=== PATIENT | female | born 1940 | race Caucasian/White ===

== ENCOUNTER 2024-09-02 09:00 | Inpatient (IN) | payer MEDICARE, OTHER, SELFPAY ==
[2024-08-30] VITALS (10 sets, daily range): BP systolic 105–142; BP diastolic 45–90; BMI 32.8
[2024-08-30 15:20] LABS: % Basophils 0.5 % (0-2); % Eosinophils 0.5 % (0-6); % Immature Granulocytes 0.5 % (0-0.5); % Lymphocytes 6.9 % (20.5-51.1); % Monocytes 5.7 % (1.7-9.3); % Neutrophils 85.9 % (42.2-75.2); Absolute Basophils 0.1 10^3/uL (0-0.2); Absolute Eosinophils 0.1 10^3/uL (0-0.7); Absolute Immature Granulocytes 0.1 10^3/uL (0-0.05); Absolute Lymphocytes 0.9 10^3/uL (1.2-3.4); Absolute Monocytes 0.7 10^3/uL (0.1-0.6); Absolute Neutrophils 11.1 10^3/uL (1.4-6.5); Hematocrit 37.6 % (37.0-47.0); Hemoglobin 11.4 g/dL (12.0-16.0); Mean Corp Hgb Conc. 30.3 g/dL (33.0-37.0); Mean Corpuscular Hgb 25.1 pg (27.0-31.0); Mean Corpuscular Volume 82.8 fL (81.0-99.0); Mean Platelet Volume 9.5 fL (7.4-10.4); Nucleated Red Blood Cells % 0 %; Platelet Count 293 10^3/uL (130-400); Red Blood Cell Count 4.54 10^6/uL (4.20-5.40); White Blood Cell Count 12.9 10^3/uL (4.8-10.8)
[2024-08-30 15:31] LABS: Urine Albumin 3+ (Neg - Trace); Urine Bilirubin 1+ (Negative); Urine Character Very Cloudy (Clear); Urine Color Brown; Urine Glucose Negative (Negative); Urine Ketone Trace (Negative); Urine Leukocyte 1+ (Negative); Urine Nitrite Positive (Negative); Urine Occult Blood 4+ (Negative); Urine Urobilinogen 1+ (Neg - 1+); Urine pH 6.5 (5.0-9.0)
--- NOTE | 2024-08-30 15:31 | ED.GENMED ---
History of Present Illness
General
Chief Complaint: Bowel Problem
Source: patient
Exam Limitations: none
Time Seen by Provider: 08/30/24 14:49
Nursing documentation reviewed up to this point in time: agreed with
History of Present Illness
History of Present Illness:
Patient is an 84-year-old presenting from assisted living for evaluation following episode of blood in toilet bowl. Patient states she went to the bathroom after eating lunch, urinating, and the toilet was filled with bright red blood. Patient
denies any dysuria. Patient states her last bowel movement was yesterday�was normal with no blood or melena. Patient denies any fevers, abdominal pain, back pain, urinary symptoms. Patient is unsure exactly where blood came from.
Patient does report shortness of breath which is chronic for her.
Her son in the room does state that she has had a few episodes of hematuria over the past year that were minor.
Patient is on any blood thinners.
Review of Systems
Review of Systems
Allergies reviewed?: Yes
All Other Systems: ROS reviewed and negative except as documented in HPI and ROS
Phy Exam
Physical Exam
Physical Exam:
Vitals: Patient's vital signs are stable. Afebrile
General: Patient is well appearing, no acute distress
Skin: Warm and dry, no rashes or lesions
Head: Normocephalic, atraumatic
Eyes: Sclera nonicteric. EOMs intact. No nystagmus.
Throat: Protecting airway
Neck: Normal ROM, no cervical spine tenderness, no meningismus
Cardiac: Regular rate and rhythm, no murmurs.
Pulm: Mild increased work of breathing. Scattered expiratory wheeze. Oxygen saturation 95 on room air
Abdomen: Abdomen soft and nontender. No rebound tenderness or guarding. No CVA tenderness
: Bimanual exam without any active bleeding from vaginal vault
Rectal: No stool in vault. No bleeding.
Extremities: No evidence of cyanosis or edema. Great distal pulses
Neuro: AAOx3. CN II-XII intact. No focal neurologic deficits.
Psychiatric: Normal affect.
Course
Orders/Labs/Results
Orders:
Orders
08/30/24 14:41
Electrocardiogram (*1) Urgent
Reason for Study: Other
Other Reason for Exam: BPR
EKG- Treatment ONCE
08/30/24 Dinner
Regular
At Your Request: Full Participation
Does patient need a safe tray?: No
08/30/24 15:11
CMP [Comprehensive Metabolic Panel] Urgent
Complete Blood Count/With Diff Urgent
08/30/24 15:26
Urinalysis Reflex To Culture Urgent
Date Specimen was Collected: 08/30/24
Time Specimen was Collected: 15:24
Urine Microscopic Reflex Cult Urgent
Urine Culture Urgent
MARILY Source: U
Specimen Description:
Date Specimen was Collected: 08/30/24
Time Specimen was Collected: 15:24
08/30/24 16:53
CT Abd/Pel (IV only)-DH only Urgent
Comment:
Reason For Exam: frequent hematuria, UTIs, chills
08/30/24 19:15
Ipratropium/Albuterol Sulfate [Duoneb] 3 ml INH R NOW STA
08/30/24 21:30
Admit/Transfer Patient As Directed
Co-Sign Provider:
Level of Care: Observation services
Assign to:: Medical/Surgical
Physician / Group: Porter Munoz
Diagnosis: UTI/Hematuria
PRN Pain Medication Management As Directed
May give lesser potent ordered pain med per pt: Yes
preference::
Protocol:: Medication orders for pain may be administered in a
manner that supports deferring to patient preference
when the pt is:
- Requesting an ordered lesser potent pain medication.
Least to most potent pain medications are defined
as: acetaminophen < NSAID < tramadol < opioids
(morphine, oxycodone, hydromorphone).
- Requesting a lesser dose of the same medication IF
ORDERED.
- Requesting a less intrusive route of administration
if both routes are prescribed by the provider (PO <
IV).
08/30/24 21:31
Code Status As Directed
Resuscitation Status: Do not resuscitate
Reached after discussion with pt or family/Healthcare POA: Yes
Decision communicated with: Patient
08/30/24 21:32
DNR Bracelet Application ONCE
08/30/24 23:50
Acetaminophen [Tylenol] 650 mg PO Q4HPRN PRN
Docusate Sodium [Colace] 100 mg PO DAILYPRN PRN
Gabapentin [Neurontin] 300 mg PO HS
Tramadol HCl [Ultram] 50 mg PO Q6HPRN PRN
Triamcinolone Cream [Aristocort/Triamcinolone 0.1% Cream] See Dose Instructions TOPICAL BIDPRN PRN
08/30/24 23:50
UROLOGY CONSULT Routine
Consulting Provider: Leonid Whipple
Was physician already notified: Yes
Activity As Directed
Activity Level: Out of Bed-Early Mobility
Vital Signs As Directed
Frequency: Per unit guidelines
DX Deep Vein Thrombosis Video Routine
08/31/24 00:00
CefTRIAXone [Rocephin] 1,000 mg IV Q24H
08/31/24 00:52
Ipratropium/Albuterol Sulfate [Duoneb] 3 ml INH R Q6HPRN PRN
08/31/24 04:15
Basic Metabolic Panel IN AM
Complete Blood Count/No Diff IN AM
08/31/24 08:00
Furosemide [Lasix] 20 mg PO MoWeFr@0800
08/31/24 18:00
Enoxaparin Sodium [Lovenox] 40 mg SC QPM
09/01/24 06:00
Basic Metabolic Panel IN AM
Complete Blood Count/No Diff IN AM
09/02/24 06:00
Basic Metabolic Panel IN AM
Complete Blood Count/No Diff IN AM
Abnormal Lab Results
08/30/24 08/30/24
15:11 15:26
WBC 12.9 H 10^3/uL
(4.8-10.8)
Hgb 11.4 L g/dL
(12.0-16.0)
MCH 25.1 L pg
(27.0-31.0)
MCHC 30.3 L g/dL
(33.0-37.0)
RDW 15.0 H %
(11.5-14.5)
Abs Immat Gran (auto) 0.1 H 10^3/uL
(0-0.05)
Absolute Neuts (auto) 11.1 H 10^3/uL
(1.4-6.5)
Absolute Lymphs (auto) 0.9 L 10^3/uL
(1.2-3.4)
Absolute Monos (auto) 0.7 H 10^3/uL
(0.1-0.6)
Neutrophils % 85.9 H %
(42.2-75.2)
Lymphocytes % 6.9 L %
(20.5-51.1)
Carbon Dioxide 32 H mmol/L
(22-30)
BUN 24 H mg/dl
(7-17)
Glucose 164 H mg/dl
(70-99)
Urine Ketones Trace A
(Negative)
Ur Occult Blood Reflex 4+ A
(Negative)
Urine Nitrite (Reflex) Positive A
(Negative)
Urine Bilirubin 1+ A
(Negative)
Leukocyte Esterase Rfl 1+ A
(Negative)
Urine RBC >100 A /HPF
(0-2)
Urine Albumin (Reflex) 3+ A
(Neg - Trace)
08/30/24 15:11
08/30/24 15:11
Vital Signs
Initial and Last Documented VS:
Initial Vital Signs
Temp Pulse Resp BP Pulse Ox
98.3 F 92 18 140/65 94
08/30/24 14:42 08/30/24 14:42 08/30/24 14:42 08/30/24 14:42 08/30/24 14:42
Last Documented Vital Signs
Temp Pulse Resp BP Pulse Ox
98.3 F 82 20 112/63 99
08/30/24 14:42 08/31/24 06:18 08/31/24 04:13 08/31/24 06:19 08/31/24 08:04
MDM/Problems Addressed
Differential Diagnosis Includes:
Not limited to: Hemorrhagic cystitis, kidney stone, pyelonephritis, malignancy, etc.
MDM/Problems Addressed:
84 year old female presenting with episode of gross hematuria. No fevers or abdominal pain. Normal bowel movements. Patient has had recent UTIs with minor episodes of hematuria over the past 6 months. Vitals stable. Patient is afebrile. Exam as
above. Labs noted. Mild leukocytosis of 12.9. Hgb of 11.4 - no comparison. Patient has had multiple episodes of gross hematuria while in emergency department. UA shows evidence of potential infection. A CT was obtained which shows findings
concerning for bladder malignancy. Did discuss with urology who will follow out-patient. Given persistent gross hematuria and weakness - will admit to hospital for further monitoring. Patient given IV rocephin in emergency department to cover for
possible UTI pending culture data. Patient admitted to hospitalist in stable condition. Case discussed with attending physician.
Chronic conditions affecting care:
N/A
Acute Exacerbation and/or Progression of Chronic Illness:
N/A
*Radiology
Radiology exam reviewed: preliminary read by ED provider and radiology read reviewed
*Pulse Oximetry
Patient hypoxic: no
*EKG
Interpreted by ED Provider?: Yes
EKG Intrepretation Date: 08/30/24
Interpretation: abnormal
Comparison EKG: no comparison EKG present
Heart Rate: 90
Rate: normal
Rhythm: sinus
[place]: normal axis
Interval: normal interval
QRS Pattern: normal QRS
Ischemia: non-specific ST changes
*Pole Classifier Interpretation
Rate: normal
Interpretation: normal
Heart Rate: 84
Rhythm: sinus
*Critical Care Note
Total Time (30-74mins, 75-104mins- exclusive of procedures): Not Applicable
Patient Management
Discussion with other providers: Hospitalist and Asian Studies Professor (Urology - Dr. Whipple)
Escalation/DeEscalation of care consider admission/obs:
Admit for further observation, IV abx
ED Attending Note
-
Portions of this chart may have been created with voice recognition software.� Occasional wrong word or��sound alike� substitutions may have occurred due to the inherent limitations of voice recognition software.
Discharge Plan
Departure
Patient Disposition: Admit
Date of Disposition: 08/30/24
Time of Disposition: 19:50
Presentation/result/management discussed w/ accepting MD/DO: Hospitalist
Discharge Problem:
Gross hematuria, Acute UTI, Weakness
Interventions
Interventions:
*Risk Screen - Suicide Last Done: 08/30/24 14:42
*General Assessment Last Done: 08/30/24 14:42
*Neglect/Abuse Screening Last Done: 08/30/24 14:42
*ED COVID-19 Vaccine History Last Done: 08/30/24 15:07
IQ-Jzeygk-Fgaiqmtukk Assessment Last Done: 08/30/24 14:42
[2024-08-30 15:40] LABS: ALT (SGPT) 23 U/L (0-35); AST (SGOT) 25 U/L (14-36); Alkaline Phosphatase 116 U/L (38-126); Blood Urea Nitrogen 24 mg/dl (7-17); Calcium 9.1 mg/dl (8.4-10.2); Carbon Dioxide 32 mmol/L (22-30); Chloride 102 mmol/L (98-107); Estimated Creatinine Clearance 66 ml/min; Glucose 164 mg/dl (70-99); Potassium 4.2 mmol/L (3.5-5.1); Sodium 145 mmol/L (135-145); Total Bilirubin 1.3 mg/dl (0.2-1.3); Total Protein 6.8 g/dl (6.3-8.2); eGFR > 60.00
[2024-08-30 15:43] LABS: Urine Red Blood Cell >100 /HPF (0-2)
[2024-08-30] MEDS: DUONEB 3 ML INH (19:33)
--- NOTE | 2024-08-30 20:23 | HPS.HSE ---
Addendum entered and electronically signed by Porter Munoz DO 08/30/24 22:15:
Patient seen and examined independently. Agree with findings and plan as set forth by YARIEL Barnes.
Patient is an 84y F with PMH significant for DJD and edema who presents to ED for evaluation of hematuria. Patient recently moved into [facility] assisted living - living independently at home prior to that. Staff at that facility appreciated
hematuria and patient was sent to the ED for further evaluation and treatment. Patient denies any fevers / chills, N/V/D, dysuria or frequency. She has remote history of smoking.
Ass:
Hematuria
Bladder Mass
Left Renal Mass
Possible UTI
DJD
Chronic LE Edema
Plan:
Admit for further evaluation and treatment.
Cover with IV abx for now - though not clear that UA abnormalities reflect infection.
Follow-up culture data.
Urology evaluation for additional recommendations / evaluation of newly appreciated lesions.
Continue usual home medications.
Original Note:
Family Physician
-
Family Physician: Edis Rodriguez
Chief Complaint
-
hematuria
History of Present Illness
Patient is a 84-year-old female with PMH osteoarthritis, and generalized edma. Patient states she was living independently at home until 5 days ago when she moved into [facility] for assistance with activities of daily living. Patient states she is
mainly independent with some assistance from aides, she walks with walker or will self propel in a wheelchair. Earlier today she went to the restroom with an aide present who observed blood in the toilet following her just urinating. Patient states
she would have never looked at it if aide was not present and pointed it out, so she is unaware if she has had any previous episodes of hematuria. She denies any fevers, chills, cough, chest pain, dyspnea, constipation, diarrhea, nausea, vomiting,
or other urinary symptoms.
Medical History
Past Medical History
Past Medical History: Reports Other
Additional Past Medical History:
Oestoarthritis
generalized edema
Past Surgical History: Reports None
Social History
Tobacco: Non-smoker
Living: Assisted Living
Employment: Retired
Family History
Family History: Unable to Obtain (patient was not sure)
Allergies / Home Medications
Allergies reflects when Allergies were last updated in [employer].
Home Medications with original date entered in [employer]
Allergy/Medication List:
Allergies
Allergy/AdvReac Type Severity Reaction Status Date / Time
No Known Allergies Allergy Unverified 08/30/24 19:30
Home Medications Table - record
�Medication �Instructions �Recorded �Confirmed
acetaminophen 650 mg tablet 650 mg PO Q4HPRN PRN mild pain 08/30/24 08/30/24
diclofenac sodium 1 % topical gel 2 g topical Q6HPRN PRN knee pain 08/30/24 08/30/24
docusate sodium 100 mg capsule 100 mg PO DAILYPRN PRN constipation 08/30/24 08/30/24
(Colace)
furosemide 20 mg tablet 20 mg PO MOWEFR 08/30/24 08/30/24
gabapentin 300 mg capsule 300 mg PO HS 08/30/24 08/30/24
ipratropium 20 mcg-albuterol 100 1 puff inhalation R Q6HPRN PRN sob 08/30/24 08/30/24
mcg/actuation mist for inhalation
(Combivent Respimat)
tramadol 50 mg tablet 50 mg PO Q6HPRN PRN moderate pain 08/30/24 08/30/24
triamcinolone acetonide 0.1 % 1 applic topical BIDPRN PRN 08/30/24 08/30/24
topical cream bilateral lower legs
Review of Systems
-
History Source: Patient
Constitutional: Reports No Symptoms
EENT: Reports No Symptoms
Respiratory: Reports No Symptoms
Cardiac: Reports No Symptoms
Abdomen/GI: Reports No Symptoms
: Reports Bleeding
Musculoskeletal: Reports No Symptoms
Skin: Reports No Symptoms
Neurological: Reports No Symptoms
Endocrine: Reports No Symptoms
Hematologic/Lymphatic: Reports No Symptoms
Psych: Reports No Symptoms
Physical Exam
Vital Signs
Vital Signs
Temp Pulse Resp BP Pulse Ox
98.3 F 91 18 141/45 93
08/30/24 14:42 08/30/24 20:15 08/30/24 14:42 08/30/24 20:01 08/30/24 19:00
Physical Exam
General: Well Developed, Well Nourished, No Apparent Distress, Comfortable and Conversant
HEENT: NormoCephalic, Moist mucous membranes, Atraumatic, PERRLA, [place] Conjunctivae, Nose Appears Normal and Ears Appear Normal
Respiratory: Clear and Non Labored Respirations; No Wheezes, Rales, Rhonchi or Crackles
Cardiac: S1/S2 and Regular Rhythm; No Murmur or Rub
Breast: Deferred by me
GI: Soft, Non Tender, Non Distended and Normal Bowel Sounds; No Organomegaly
Rectal: Deferred by Provider
Genito-urinary: Deferred by me
Musculoskeletal: No Clubbing, No Cyanosis and No Edema
Skin: Warm, Dry and IV/Catheter Site; No Rash
Neuro: Awake, Alert and Nonfocal/grossly intact
Hematologic/Lymphatic: No Lymphadenopathy
Psych: Calm
Laboratory Results
-
08/30/24 15:11
08/30/24 15:11
Laboratory Results
Total Bilirubin 1.3 mg/dl (0.2-1.3) 08/30/24 15:11
AST 25 U/L (14-36) 08/30/24 15:11
ALT 23 U/L (0-35) 08/30/24 15:11
Alkaline Phosphatase 116 U/L (38-126) 08/30/24 15:11
Data Reviewed
-
CT Scan: Report Reviewed by me (3.5 x 3.3 x 1.6 cm hyperdense lesion along the superior urinary bladder - suspicious for malignancy; 2.8 cm mildly hyperdense lesion along the inferior pole the left kidney -possible hemorrhagic/proteinaceous cyst
however renal neoplasm cannot be excluded )
Medical Tests (Nuc Med, Echo, EKG etc): Report Reviewed by me (EKG - NORMAL SINUS RHYTHM NONSPECIFIC T WAVE ABNORMALITY)
Lab Data: Labs Reviewed by me (WBC 12.9, Hgb 11.4/Hct 37.6)
Impression/Plan
-
IMPRESSION/PLAN:
#Urinary tract infection/Hematuria
- Leukocytosis of 12.9
- Abdominal/Pelvis CT:
There is a 3.5 x 3.3 x 1.6 cm hyperdense lesion along the superior urinary bladder with possible extension into the perivesicular fat, highly suspicious for malignancy. Recommend direct visualization for further evaluation.
There is a 2.8 cm mildly hyperdense lesion along the inferior pole the left kidney, possible hemorrhagic/proteinaceous cyst however renal neoplasm cannot be excluded. Further evaluation with MRI with and without contrast may be considered.
- IV Rocephin
- monitor H/H
#Osteoarthritis
- continue gabapentin, PRN Tramadol
#Generalized edema
- continue lasix
DNR
DVT Px: Lovenox Sq
[2024-08-30] MEDS: TYLENOL 650 MG PO (22:29)
[2024-08-31] VITALS (13 sets, daily range): BP systolic 106–156; BP diastolic 58–97
[2024-08-31] MEDS: NEURONTIN 300 MG PO ×2 (01:22→21:06)
[2024-08-31] MEDS: ULTRAM 50 MG PO ×2 (01:22→21:06)
[2024-08-31] MEDS: STERILE WATER FOR INJECTION 10 ML IV ×3 (01:23→21:07)
[2024-08-31] MEDS: ROCEPHIN 1000 MG IV (01:23)
[2024-08-31 04:30] LABS: Hematocrit 32.6 % (37.0-47.0); Mean Corp Hgb Conc. 30.7 g/dL (33.0-37.0); Mean Corpuscular Volume 81.5 fL (81.0-99.0); Mean Platelet Volume 9.9 fL (7.4-10.4); Platelet Count 244 10^3/uL (130-400); Red Cell Dist. Width 14.9 % (11.5-14.5)
[2024-08-31 04:42] LABS: Blood Urea Nitrogen 21 mg/dl (7-17); Calcium 8.9 mg/dl (8.4-10.2); Carbon Dioxide 28 mmol/L (22-30); Chloride 103 mmol/L (98-107); Estimated Creatinine Clearance 77 ml/min; Glucose 139 mg/dl (70-99); Potassium 3.8 mmol/L (3.5-5.1); Sodium 140 mmol/L (135-145); eGFR > 60.00
--- NOTE | 2024-08-31 06:40 | EDRN ---
Pt.s pulse ox. dropped to 88/89% on RA while pt. was sleeping, pt. placed on 2L NC while sleeping, pulse ox. now 95/96%.
[2024-08-31] MEDS: LASIX 20 MG PO (08:03)
--- NOTE | 2024-08-31 12:37 | CONS.URO ---
Consultation
-
Performing Provider: Sarabjit
Reason for Consultation: Hematuria
Medical History
History of Present Illness
84F without known prior urologic history.
Patient states she was living independently at home until 5 days ago when she moved into [facility] for assistance with activities of daily living. Patient mostly independent with some assistance from aides, she walks with walker or will self propel
in a wheelchair.
Yesterday she went to the restroom with an aide present who observed blood in the toilet.
Patient states she would have never looked at it if aide was not present and pointed it out, so she is unaware if she has had any previous episodes of hematuria.
Per report patient's son said she had had several episodes of hematuria in the past year
She denies any fevers, chills, nausea, vomiting, or other acute urinary symptoms
No clots, no orthostatic hypotension, dizziness, or falls
UA positive for likely UTI
Some leukocytosis
CT showed 1.5x3cm bladder mass as well as a 2.8cm hyperdense L renal cyst
Scheduled patient for follow up early next week
Patient admitted per patient's son's request
Past Medical History
Past Medical History: Other (Oestoarthritis generalized edema)
Past Surgical History: None and Other
Social History
Tobacco: Former Smoker
Alcohol: None
Drug: None
Family History
Family History: Reviewed & Not Pertinent
Allergies/Home Medications
Allergies
Allergy/AdvReac Type Severity Reaction Status Date / Time
No Known Allergies Allergy Unverified 08/30/24 19:30
Home Medications
�Medication �Instructions �Recorded �Confirmed �Type
acetaminophen 650 mg tablet 650 mg PO Q4HPRN PRN mild pain 08/30/24 08/30/24 History
diclofenac sodium 1 % topical gel 2 g topical Q6HPRN PRN knee pain 08/30/24 08/30/24 History
docusate sodium 100 mg capsule 100 mg PO DAILYPRN PRN constipation 08/30/24 08/30/24 History
(Colace)
furosemide 20 mg tablet 20 mg PO MOWEFR Fluid 08/30/24 08/30/24 History
Retention/Swelling
gabapentin 300 mg capsule 300 mg PO HS pain 08/30/24 08/30/24 History
ipratropium 20 mcg-albuterol 100 1 puff inhalation R Q6HPRN PRN sob 08/30/24 08/30/24 History
mcg/actuation mist for inhalation
(Combivent Respimat)
tramadol 50 mg tablet 50 mg PO Q6HPRN PRN moderate pain 08/30/24 08/30/24 History
triamcinolone acetonide 0.1 % 1 applic topical BIDPRN PRN 08/30/24 08/30/24 History
topical cream bilateral lower legs
Physical Exam
Vital Signs
Vital Signs
Temp Pulse Resp BP Pulse Ox
97.6 F 80 20 131/63 95
08/31/24 07:00 08/31/24 07:00 08/31/24 07:00 08/31/24 07:00 08/31/24 10:37
Lab / Testing Results
Laboratory Results
08/31/24 04:15
08/31/24 04:15
Physical Exam
General: Well Developed, Well Nourished and No Apparent Distress
Respiratory: Wheezes and Accessory Resp Muscle Use
GI: Soft, Non Tender and Non Distended
Genito-urinary: No Costovertebral Tend
Neuro: AO x 3
Psych: Calm and Intact Judgement
Assessment / Plan
-
84F with gross hematuria off and on for 1 year
Brought to ED when witnessed by custodial staff at new facility
Positive urinalysis and leukocytosis without acute UTI symptoms
CT showing 1.5x3cm bladder mass
2.8cm hyperdense renal cyst vs mass
Bladder mass concerning for possible urothelial carcinoma
In discussing with patient today she is not sure she would want to have any surgery or treatment if she were diagnosed with bladder cancer
The renal mass may be hyperdense cyst or an enhancing renal mass - further imaging could clarify but I will likely recommend only surveillance for this lesion and obtain imaging in 6-12 months
- Hematuria near completely resolved this AM with hilda colored urine
- Recommend UTI treatment for leukocytosis, hematuria and positive UA, though not with clear UTI symptoms. Follow up urine culture and continue PO abx for total 10 days course
- No further inpatient eval needed from urology standpoint
- Outpatient follow up scheduled 09/06 at 4pm to discuss management of bladder mass and renal lesion. Next step will likely be office cystoscopy to evaluate for bladder tumor
--- NOTE | 2024-08-31 13:34 | W.PN.HOSP.TC ---
Today's Communication/Plan
-
cont abx
f/u cultures
urology consulted
Assessment / Plan
Assessment / Plan
Physical Exam
General: Well Developed, Well Nourished, No Apparent Distress, Comfortable and Conversant
HEENT: NormoCephalic, Moist mucous membranes, Atraumatic, PERRLA, [place] Conjunctivae, Nose Appears Normal and Ears Appear Normal
Respiratory: Clear and Non Labored Respirations; No Wheezes, Rales, Rhonchi or Crackles
Cardiac: S1/S2 and Regular Rhythm; No Murmur or Rub
Breast: Deferred by me
GI: Soft, Non Tender, Non Distended and Normal Bowel Sounds; No Organomegaly
Rectal: Deferred by Provider
Genito-urinary: Deferred by me
Musculoskeletal: No Clubbing, No Cyanosis and No Edema
Skin: Warm, Dry and IV/Catheter Site; No Rash
Neuro: Awake, Alert and Nonfocal/grossly intact
Hematologic/Lymphatic: No Lymphadenopathy
Psych: Calm
#Sepsis, with elevated WBC, RR and source, POA
#UTI
-zosyn
-f/u cultures
#Hematuria
-may be related to UTI + hyperdense lesion in the bladder
-There is a 3.5 x 3.3 x 1.6 cm hyperdense lesion along the superior urinary bladder with possible extension into the perivesicular fat, highly suspicious for malignancy. Recommend direct visualization for further evaluation.
-see plan above
-Urology consulted
#Lesion along the inferior pole the left kidney
-2.8 cm mildly hyperdense lesion along the inferior pole the left kidney,
-possible hemorrhagic/proteinaceous cyst however renal neoplasm cannot be excluded. Further evaluation with MRI with and without contrast may be considered.
-Urology consulted
#Osteoarthritis
- continue gabapentin, PRN Tramadol
#Generalized edema
- continue lasix
DNR
DVT Px: Lovenox Sq
Anticipated Discharge: 24 - 48 hours
Subjective/Interval History
-
Date of Service: August 31, 2024
no acute events
Objective Data
-
Labs:
Laboratory Results
08/31/24
04:15
WBC 11.0 H
Hgb 10.0 L
Hct 32.6 L
Plt Count 244
Sodium 140
Potassium 3.8
Chloride 103
Carbon Dioxide 28
BUN 21 H
Creatinine 0.6
Glucose 139 H
Calcium 8.9
Vital Signs:
Vital Signs
Temp Pulse Resp BP Pulse Ox
97.6 F 80 20 106/89 86
08/31/24 07:00 08/31/24 07:00 08/31/24 07:00 08/31/24 13:00 08/31/24 12:17
Review of Systems
-
History Source: Patient
All other systems: Not reviewed unless documented
Data Reviewed
-
CT Scan: Image personally visualized and interpreted and Report Reviewed by me
Labs: Labs Reviewed by me
[2024-08-31] MEDS: MAXIPIME 2000 MG IV ×2 (14:24→21:09)
[2024-08-31] MEDS: DUONEB 3 ML INH ×2 (14:25→21:29)
--- NOTE | 2024-08-31 15:00 | CM ---
Met with patient and family at the bedside; ED Bed 14; initial assessment completed
[facility]ICKMAN form explained to family; POA signed form @1438
Pharmacy verified: [facility] on [address] [facility] [place] [place]
Per family patient is a fairly new resident at [place]; requires assistance w/ personal care; able to request toileting sometimes; wears Depends
PLOF: ambulated with RW; legs get weak; able to feed self; goes to dining room for lunch and dinner
DME: RW, Wheelchair
Multiple SNF stays this year @ [facility] in March and [facility] in June
Son thinks he will be able to transport via his car to the [place]; but will need help
PT/OT pending
Plan: disposition determination pending hospital course; CM will continue to monitor for needs/services
[2024-08-31] MEDS: LOVENOX 40 MG SC (18:10)
[2024-09-01] MEDS: MAXIPIME 2000 MG IV (05:04)
[2024-09-01] MEDS: STERILE WATER FOR INJECTION 10 ML IV ×2 (05:04→13:51)
[2024-09-01 05:47] VITALS: BMI 31.7
[2024-09-01 07:30] LABS: Hemoglobin 10.1 g/dL (12.0-16.0); Mean Corp Hgb Conc. 29.7 g/dL (33.0-37.0); Mean Corpuscular Hgb 25.3 pg (27.0-31.0); Mean Corpuscular Volume 85.2 fL (81.0-99.0); Mean Platelet Volume 9.8 fL (7.4-10.4); Platelet Count 265 10^3/uL (130-400); Red Blood Cell Count 3.99 10^6/uL (4.20-5.40); Red Cell Dist. Width 14.7 % (11.5-14.5); White Blood Cell Count 11.4 10^3/uL (4.8-10.8)
[2024-09-01 07:40] VITALS: BP 148/64
[2024-09-01 07:58] LABS: Blood Urea Nitrogen 22 mg/dl (7-17); Calcium 8.9 mg/dl (8.4-10.2); Carbon Dioxide 31 mmol/L (22-30); Chloride 102 mmol/L (98-107); Estimated Creatinine Clearance 65 ml/min; Glucose 129 mg/dl (70-99); Sodium 143 mmol/L (135-145); eGFR > 60.00
--- NOTE | 2024-09-01 13:32 | W.PN.HOSP.TC ---
Today's Communication/Plan
-
Switch ceftriaxone
Follow-up final blood cultures
Assessment / Plan
Assessment / Plan
Physical Exam
General: Well Developed, Well Nourished, No Apparent Distress, Comfortable and Conversant
HEENT: NormoCephalic, Moist mucous membranes, Atraumatic, PERRLA, [place] Conjunctivae, Nose Appears Normal and Ears Appear Normal
Respiratory: Clear and Non Labored Respirations; No Wheezes, Rales, Rhonchi or Crackles
Cardiac: S1/S2 and Regular Rhythm; No Murmur or Rub
Breast: Deferred by me
GI: Soft, Non Tender, Non Distended and Normal Bowel Sounds; No Organomegaly
Rectal: Deferred by Provider
Genito-urinary: Deferred by me
Musculoskeletal: No Clubbing, No Cyanosis and No Edema
Skin: Warm, Dry and IV/Catheter Site; No Rash
Neuro: Awake, Alert and Nonfocal/grossly intact
Hematologic/Lymphatic: No Lymphadenopathy
Psych: Calm
#Sepsis, with elevated WBC, RR and source, POA
#UTI, Klebsiella pneumoniae
-zosyn - transition to ceftriaxone
-f/u cultures - await blood cultures
#Hematuria
-may be related to UTI + hyperdense lesion in the bladder
-There is a 3.5 x 3.3 x 1.6 cm hyperdense lesion along the superior urinary bladder with possible extension into the perivesicular fat, highly suspicious for malignancy. Recommend direct visualization for further evaluation.
-see plan above
-Urology consulted
-Outpatient follow up scheduled 09/06 at 4pm to discuss management of bladder mass and renal lesion. Next step will likely be office cystoscopy to evaluate for bladder tumor
#Lesion along the inferior pole the left kidney
-2.8 cm mildly hyperdense lesion along the inferior pole the left kidney,
-possible hemorrhagic/proteinaceous cyst however renal neoplasm cannot be excluded. Further evaluation with MRI with and without contrast may be considered.
-Urology consulted
-Outpatient follow up scheduled 09/06 at 4pm to discuss management of bladder mass and renal lesion. Next step will likely be office cystoscopy to evaluate for bladder tumor
#Osteoarthritis
- continue gabapentin, PRN Tramadol
#Generalized edema
- continue lasix
DNR
DVT Px: Lovenox Sq
Anticipated Discharge: Within 24 hours
Subjective/Interval History
-
Date of Service: September 01, 2024
no acute events
Objective Data
-
Labs:
Laboratory Results
09/01/24
07:00
WBC 11.4 H
Hgb 10.1 L
Hct 34.0 L
Plt Count 265
Sodium 143
Potassium 4.0
Chloride 102
Carbon Dioxide 31 H
BUN 22 H
Creatinine 0.7
Glucose 129 H
Calcium 8.9
Vital Signs:
Vital Signs
Temp Pulse Resp BP Pulse Ox
97.5 F 90 20 148/64 97
09/01/24 07:40 09/01/24 07:40 09/01/24 07:40 09/01/24 07:40 09/01/24 09:13
I&O
08/31/24 09/01/24 09/02/24
06:59 06:59 06:59
Intake Total 360 / 360
Output Total 150 / 150
Balance 210 / 210
Review of Systems
-
History Source: Patient
All other systems: Not reviewed unless documented
Data Reviewed
-
CT Scan: Image personally visualized and interpreted and Report Reviewed by me
Labs: Labs Reviewed by me
[2024-09-01] MEDS: ROCEPHIN 1000 MG IV (13:51)
[2024-09-01] MEDS: LASIX 40 MG IV (15:44)
[2024-09-01] MEDS: FLUSH (NSS) 1 FLUSH IV (15:44)
[2024-09-01 16:06] LABS: NT-proBNP 2200 pg/ml
--- NOTE | 2024-09-01 16:10 | PTCARENOTE ---
Pt AAO x3, CLINE slowly; OOB to chair with assist x2/walker, CLINE very slowly; pt stated 'It feels like my feet are going out from under me'. Fall prec maintained. VSS. Currently on room air- pulse ox 93%, pt with (+) slight COOPER/tachypnea; (-)
cough. Pt states she does not use O2 nc prior to admission. Abd obese, soft, noemi PO well. Incont large amts hilda urine; Purewick catheter in place when pt is in bed. Resting quietly at present. Will continue to monitor.
[2024-09-01] MEDS: LOVENOX 40 MG SC (17:47)
[2024-09-01] MEDS: NEURONTIN 300 MG PO (20:35)
[2024-09-01 23:27] VITALS: BP 115/58
--- NOTE | 2024-09-02 04:30 | PTCARENOTE ---
Patient with increasing SOB. patients respirations 28, sating 98% on 2LNC. Patient tachypneic, belly breathing, audibly wheezing. Lungs sound clear posteriorly. Notified GLUE BONE CRUSHER, requested nebs vs lasix possibly. Received a dose of IV lasix during
dayshift. Per GLUE BONE CRUSHER, will try neb tx and then lasix if no improvement. Will continue to monitor.
[2024-09-02 04:36] VITALS: BMI 31.1
--- NOTE | 2024-09-02 04:43 | W.PN.UPDATE ---
Update Note
Progress Note Update
Wheezing, fever
[2024-09-02] MEDS: DUONEB 3 ML INH ×2 (04:48→19:45)
[2024-09-02 05:20] LABS: COVID-19 Antigen Negative (Negative)
[2024-09-02] MEDS: LASIX 20 MG PO (07:56)
[2024-09-02 08:18] LABS: Hematocrit 35.5 % (37.0-47.0); Hemoglobin 10.6 g/dL (12.0-16.0); Mean Corp Hgb Conc. 29.9 g/dL (33.0-37.0); Mean Corpuscular Hgb 25.5 pg (27.0-31.0); Mean Corpuscular Volume 85.5 fL (81.0-99.0); Mean Platelet Volume 9.8 fL (7.4-10.4); Platelet Count 272 10^3/uL (130-400); Red Blood Cell Count 4.15 10^6/uL (4.20-5.40); Red Cell Dist. Width 14.6 % (11.5-14.5); White Blood Cell Count 12.4 10^3/uL (4.8-10.8)
[2024-09-02 08:25] VITALS: BP 128/68
[2024-09-02 09:11] LABS: Blood Urea Nitrogen 21 mg/dl (7-17); Calcium 8.8 mg/dl (8.4-10.2); Carbon Dioxide 37 mmol/L (22-30); Chloride 95 mmol/L (98-107); Estimated Creatinine Clearance 56 ml/min; Glucose 116 mg/dl (70-99); Potassium 3.8 mmol/L (3.5-5.1); Sodium 141 mmol/L (135-145); eGFR > 60.00
[2024-09-02 11:36] VITALS: BP 123/53; O2SAT 90
[2024-09-02 11:40] VITALS: BP 123/53; PULSE 83; O2SAT 91
--- NOTE | 2024-09-02 14:09 | W.PN.HOSP.TC ---
Addendum entered and electronically signed by Rocky Patel MD 09/03/24 16:51:
Urology, PCP f/u
[id number]
Original Note:
Today's Communication/Plan
-
Transition to cefdinir to to complete additional 7-day course, total 10-day course antibiotics for complete UTI
Switch Lasix to 20 mg daily
Follow-up BMP in 3 to 5 days with PCP
Neurology, PCP outpatient follow-up
Assessment / Plan
Assessment / Plan
Physical Exam
General: Well Developed, Well Nourished, No Apparent Distress, Comfortable and Conversant
HEENT: NormoCephalic, Moist mucous membranes, Atraumatic, PERRLA, [place] Conjunctivae, Nose Appears Normal and Ears Appear Normal
Respiratory: Clear and Non Labored Respirations; No Wheezes, Rales, Rhonchi or Crackles
Cardiac: S1/S2 and Regular Rhythm; No Murmur or Rub
Breast: Deferred by me
GI: Soft, Non Tender, Non Distended and Normal Bowel Sounds; No Organomegaly
Rectal: Deferred by Provider
Genito-urinary: Deferred by me
Musculoskeletal: No Clubbing, No Cyanosis and No Edema
Skin: Warm, Dry and IV/Catheter Site; No Rash
Neuro: Awake, Alert and Nonfocal/grossly intact
Hematologic/Lymphatic: No Lymphadenopathy
Psych: Calm
#Sepsis, with elevated WBC, RR and source, POA
#UTI, Klebsiella pneumoniae
-zosyn - transition to ceftriaxone - transition to cefdinir to complete 10 day course of abx
-f/u cultures - blood cultures: ngtd
#Hematuria
-may be related to UTI + hyperdense lesion in the bladder
-There is a 3.5 x 3.3 x 1.6 cm hyperdense lesion along the superior urinary bladder with possible extension into the perivesicular fat, highly suspicious for malignancy. Recommend direct visualization for further evaluation.
-see plan above
-Urology consulted
-Outpatient follow up scheduled 09/06 at 4pm to discuss management of bladder mass and renal lesion. Next step will likely be office cystoscopy to evaluate for bladder tumor
#Lesion along the inferior pole the left kidney
-2.8 cm mildly hyperdense lesion along the inferior pole the left kidney,
-possible hemorrhagic/proteinaceous cyst however renal neoplasm cannot be excluded. Further evaluation with MRI with and without contrast may be considered.
-Urology consulted
-Outpatient follow up scheduled 09/06 at 4pm to discuss management of bladder mass and renal lesion. Next step will likely be office cystoscopy to evaluate for bladder tumor
#Acute HFpEf
�Switch 20 mg Lasix Thursday to 20 mg Lasix daily
� Follow BMP in 3 to 5 days
� Follow-up PCP outpatient
#Osteoarthritis
- continue gabapentin, PRN Tramadol
#Generalized edema
- continue lasix
DNR
DVT Px: Lovenox Sq
More than 30 minutes spent in discharge including
Final examination of the patient
Summarizing hospital stay
Instructions for continuing care to all relevant caregivers
Preparation of discharge records, prescriptions, and referral forms
Total time spent (35 in minutes):
Anticipated Discharge: Today
Subjective/Interval History
-
Date of Service: September 02, 2024
Wheezing improved with Lasix. Echo with grade 2 diastolic dysfunction. Otherwise no acute events overnight
Objective Data
-
Labs:
Laboratory Results
09/02/24
07:27
WBC 12.4 H
Hgb 10.6 L
Hct 35.5 L
Plt Count 272
Sodium 141
Potassium 3.8
Chloride 95 L
Carbon Dioxide 37 H
BUN 21 H
Creatinine 0.8
Glucose 116 H
Calcium 8.8
Vital Signs:
Vital Signs
Temp Pulse Resp BP Pulse Ox
98.6 F 88 22 128/68 100
09/02/24 08:25 09/02/24 08:25 09/02/24 08:25 09/02/24 08:25 09/02/24 08:25
I&O
09/01/24 09/02/24 09/03/24
06:59 06:59 06:59
Intake Total 360 / 360 1080 / 1080
Output Total 150 / 150 1200 / 1200
Balance 210 / 210 -120 / -120
Review of Systems
-
History Source: Patient
All other systems: Not reviewed unless documented
Data Reviewed
-
Diagnostic Radiology: Image personally visualized and interpreted and Report Reviewed by me
CT Scan: Image personally visualized and interpreted and Report Reviewed by me
Medical Tests (Nuc Med, Echo etc): Image personally visualized and interpreted
Labs: Labs Reviewed by me
--- NOTE | 2024-09-02 14:17 | W.DS.TRANS ---
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
-
Discharge Instructions:
Discharge Diagnosis/Procedures #Sepsis, with elevated WBC, RR and source, POA
#UTI, Klebsiella pneumoniae
#Acute on Chronic HFpEF
Diet Low Fat,Low Cholesterol,2 Gram Sodium,Restrict
fluids to 48 oz
Activity As tolerated
Blood Work f/u cbc, and bmp (Scr now that on more frequent
Lasix) in 3-5 days
Instructions:
Stand-Alone Forms:
Changes to Home Medications: Yes
Discharge Medications:
DC Medications w/original date entered in [employer]
acetaminophen 650 mg tablet 650 mg PO Q4HPRN PRN mild pain 08/30/24
diclofenac sodium 1 % topical gel 2 g topical Q6HPRN PRN knee pain 08/30/24
docusate sodium 100 mg capsule (Colace) 100 mg PO DAILYPRN PRN constipation 08/30/24
gabapentin 300 mg capsule 300 mg PO HS pain 08/30/24
ipratropium 20 mcg-albuterol 100 mcg/actuation mist for inhalation (Combivent Respimat) 1 puff inhalation R Q6HPRN PRN sob 08/30/24
tramadol 50 mg tablet 50 mg PO Q6HPRN PRN moderate pain 08/30/24
triamcinolone acetonide 0.1 % topical cream 1 applic topical BIDPRN PRN bilateral lower legs 08/30/24
cefdinir 300 mg capsule 300 mg PO Q12H 7 days #14 caps 09/02/24
furosemide 20 mg tablet 20 mg PO DAILY #0 tabs 09/02/24
Home Medication Changes
cefdinir 300 mg capsule 300 mg PO Q12H 7 days #14 caps 09/02/24
furosemide 20 mg tablet 20 mg PO DAILY #0 tabs 09/02/24
Pending Results: No
[2024-09-02 15:18] VITALS: BP 110/60
[2024-09-02] MEDS: STERILE WATER FOR INJECTION 10 ML IV (15:30)
[2024-09-02] MEDS: ROCEPHIN 1000 MG IV (15:30)
--- NOTE | 2024-09-02 16:58 | CM ---
Addendum entered by Cheryl Spencer 09/02/24 17:27:
YANDY made multiple attempts to contact family; contact phone numbers in the computer are inaccurate.
YANDY was able to reach son, Bacilio, at [phone]. He also had been contacted previously on [phone], however I was unable to contact him on this number. He advised his sister, Lolis can be reached at [phone].
Original Note:
YANDY spoke with Dasha at [facility] earlier today to provide update; pt cleared for return.
Called [facility] to make them aware of discharge this evening. Ambulance transport arranged due to pt needing assistx2 to get out of bed and ambulate. Pt fearful of falling.
Plan: Discharge to [facility] today via ambulance. 7PM picking belt operator scheduled.
[facility] Report:[phone]
[facility]
[2024-09-02] MEDS: LOVENOX SC (18:29)
[2024-09-02] MEDS: TYLENOL 650 MG PO (19:48)
[2024-09-02] MEDS: NEURONTIN 300 MG PO (19:48)
== END 2024-09-02 20:16 | DRG 871 ==
LOC: 4 EAST ACU 09:00
PROVIDERS: Nurse Practitioner Family; Physician Assistant; ADMITTING PHYSICIAN Hospitalist; ATTENDING PHYSICIAN Internal Medicine; CONSULT PHYSICIAN Urology; EMERGENCY PHYSICIAN Student in an Organized Health Care Education/Training Program; FAMILY PHYSICIAN Internal Medicine
DX: A41.9 Sepsis, unspecified organism (principal); I50.33 Acute on chronic diastolic (congestive) heart failure; N39.0 Urinary tract infection, site not specified; B96.1 Klebsiella pneumoniae [K. pneumoniae] as the cause of diseases classified elsewhere; Z66 Do not resuscitate; M19.90 Unspecified osteoarthritis, unspecified site; N28.1 Cyst of kidney, acquired; N32.89 Other specified disorders of bladder; N28.89 Other specified disorders of kidney and ureter; Z79.899 Other long term (current) drug therapy; Z87.891 Personal history of nicotine dependence
CPT/HCPCS: 71046; 74177; 80048; 80053; 81003; 81015; 83880; 85025; 85027; 87040; 87070; 87077; 87086; 87186; 87811; 93005; 93306; 94640; 97163; 97166; Q9967

== ENCOUNTER 2024-09-16 17:48 | Emergency (ER) | payer MEDICARE, OTHER, SELFPAY ==
[2024-09-16] VITALS (7 sets, daily range): BP systolic 121–141; BP diastolic 58–73; BMI 32.0
[2024-09-16 18:12] LABS: % Basophils 0.5 % (0-2); % Eosinophils 0.5 % (0-6); % Immature Granulocytes 0.4 % (0-0.5); % Lymphocytes 10.2 % (20.5-51.1); % Neutrophils 82.4 % (42.2-75.2); Absolute Basophils 0.1 10^3/uL (0-0.2); Absolute Eosinophils 0.1 10^3/uL (0-0.7); Absolute Lymphocytes 1.2 10^3/uL (1.2-3.4); Absolute Monocytes 0.7 10^3/uL (0.1-0.6); Absolute Neutrophils 9.4 10^3/uL (1.4-6.5); Hematocrit 37.1 % (37.0-47.0); Hemoglobin 11.3 g/dL (12.0-16.0); Mean Corp Hgb Conc. 30.5 g/dL (33.0-37.0); Mean Corpuscular Hgb 24.7 pg (27.0-31.0); Mean Corpuscular Volume 81.2 fL (81.0-99.0); Mean Platelet Volume 9.3 fL (7.4-10.4); Nucleated Red Blood Cells % 0 %; Platelet Count 307 10^3/uL (130-400); Red Blood Cell Count 4.57 10^6/uL (4.20-5.40); Red Cell Dist. Width 14.6 % (11.5-14.5); White Blood Cell Count 11.4 10^3/uL (4.8-10.8)
[2024-09-16 18:40] LABS: NT-proBNP 1380 pg/ml
[2024-09-16 19:10] LABS: ALT (SGPT) 15 U/L (0-35); AST (SGOT) 27 U/L (14-36); Albumin 3.6 g/dl (3.5-5.0); Alkaline Phosphatase 102 U/L (38-126); Blood Urea Nitrogen 22 mg/dl (7-17); Carbon Dioxide 31 mmol/L (22-30); Chloride 102 mmol/L (98-107); Estimated Creatinine Clearance 76 ml/min; Glucose 163 mg/dl (70-99); Potassium 4.3 mmol/L (3.5-5.1); Sodium 143 mmol/L (135-145); Total Bilirubin 1.2 mg/dl (0.2-1.3); Total Protein 6.5 g/dl (6.3-8.2); eGFR > 60.00
--- NOTE | 2024-09-16 19:40 | ED.GENMED ---
History of Present Illness
General
Chief Complaint: Breathing Problem
Source: patient, records and family
Time Seen by Provider: 09/16/24 19:11
History of Present Illness
History of Present Illness:
84yoF with a history of hypertension, CHF, and diabetes presenting via EMS for evaluation of shortness of breath. Patient states she has been feeling generally unwell throughout the day today. She started to have shortness of breath and wheezing.
Her oxygen saturation was reportedly low and EMS was called. Patient does use an inhaler as needed. She is currently feeling much better. She denies any chest pain or fevers. Patient was recently hospitalized for urosepsis. She finished
antibiotics 4 days ago. During her hospitalization, she had a CT which showed a bladder lesion concerning for malignancy. She has an upcoming appointment with urology scheduled for a cystoscopy. She continues to have pink-tinged urine. She was
discharged on 20 mg Lasix daily although she only takes this 3 times a week. Patient states she missed 1 dose this week due to urinary frequency. Echocardiogram on 08/28/2024 revealed EF of 55-60% with grade 2 diastolic dysfunction.
Phy Exam
General Physical Exam
General Presentation: no apparent distress
General age: appears stated age
General Skin: warm and dry
General Habitus: elderly
General Mental: alert
ENT Exam
ENT Exam: normocephalic
Cardiovascular Exam
Cardiovascular Exam: regular rate/rhythm and systolic murmur
Pulmonary Exam
Pulmonary Exam: lungs clear, no respiratory distress, no rales, no crackles and no wheezing
Sakshi Coma Scale
Eye Opening: Spontaneous
Verbal Response: Oriented
Motor Response: Obeys Commands
GCS Total Score: 15
Skin Exam
Skin Exam: normal color, warm/dry and other (Chronic venous stasis changes to bilateral lower extremities. 1-2+ pitting edema in LLE. No pitting edema in RLE.)
Psychiatric Exam
Psychiatric Exam: normal mood/affect
Scores
Heart Failure Risk
Heart Failure Risk Score: Not Applicable
Course
Orders/Labs/Results
Orders:
Orders
09/16/24 17:58
EKG [Electrocardiogram (*1)] Urgent
Reason for Study: Shortness of Breath
EKG- Treatment ONCE
09/16/24 17:59
CBC/With Diff [Complete Blood Count/With Diff] Urgent
Pro-BNP [NT-proBNP] Urgent
09/16/24 18:02
Type+Screen Urgent
09/16/24 18:23
ABO2 Urgent
BBK Wristband Number:
Associate notified that ABO2 has been ordered: [id number]
Date: 09/16/24
Time: 18:13
Accounts Receivable Accountant ID: [id number]
09/16/24 18:46
Comprehensive Metabolic Panel Urgent
09/16/24 19:37
Venous Doppler Lwr Ext Left [US Periph Venous LOWER Ext LT] Urgent
Comment:
Reason For Exam: L calf swelling
09/16/24 19:38
CR Chest - 2 Views Urgent
Comment:
Reason For Exam: SOB
09/16/24 20:00
Troponin I Urgent
Influenza A+B Rapid Molecular Urgent
MARILY Source: Nasal Swab
Specimen Description:
Respiratory Syncytial Virus Urgent
MARILY Source: Nasal Swab
Specimen Description:
Date Specimen was Collected: 09/16/24
Time Specimen was Collected: 19:54
Abnormal Lab Results
09/16/24 09/16/24
17:59 18:46
WBC 11.4 H 10^3/uL
(4.8-10.8)
Hgb 11.3 L g/dL
(12.0-16.0)
MCH 24.7 L pg
(27.0-31.0)
MCHC 30.5 L g/dL
(33.0-37.0)
RDW 14.6 H %
(11.5-14.5)
Absolute Neuts (auto) 9.4 H 10^3/uL
(1.4-6.5)
Absolute Monos (auto) 0.7 H 10^3/uL
(0.1-0.6)
Neutrophils % 82.4 H %
(42.2-75.2)
Lymphocytes % 10.2 L %
(20.5-51.1)
Carbon Dioxide 31 H mmol/L
(22-30)
BUN 22 H mg/dl
(7-17)
Glucose 163 H mg/dl
(70-99)
09/16/24 17:59
09/16/24 18:46
Vital Signs
Initial and Last Documented VS:
Initial Vital Signs
Temp Pulse Resp BP Pulse Ox
98.4 F 90 22 136/58 99
09/16/24 17:51 09/16/24 17:51 09/16/24 17:51 09/16/24 17:51 09/16/24 17:51
Last Documented Vital Signs
Temp Pulse Resp BP Pulse Ox
98.4 F 94 27 141/73 94
09/16/24 17:51 09/16/24 23:30 09/16/24 23:30 09/16/24 23:00 09/16/24 22:45
MDM/Problems Addressed
Differential Diagnosis Includes:
84yoF here with SOB. Oxygen saturation reportedly low at her halfway. She denies any dyspnea on initial exam. Oxygen saturation 99% and remainder of vitals stable. She is well appearing in no distress. Lungs CTA and respirations non-labored.
She does have pitting edema in the LLE which she states is baseline. Differential diagnosis includes but is not limited to: bronchospasm, bronchitis, pneumonia, CHF, ACS
Initial ED plan: CBC, CMP, and BNP obtained in triage. BNP is 1380 which is decreased from last hospitalization. Hemoglobin is stable at 11.3. Will check influenza/RSV swab (hx of recent COVID infection), EKG, venous duplex, and CXR.
*EKG
Interpreted by ED Provider?: Yes
EKG Intrepretation Date: 09/16/24
Heart Rate: 89
Rate: normal
Rhythm: sinus
[place]: normal axis
Interval: normal interval
QRS Pattern: normal QRS
Ischemia: non-specific ST changes
*Critical Care Note
Total Time (30-74mins, 75-104mins- exclusive of procedures): Not Applicable
Update Note
Update Note:
No ischemic changes on EKG and troponin is normal. Influenza/RSV swabs negative. CXR is clear without pulmonary edema or infiltrate. Venous duplex is negative for DVT. No episodes of hypoxia during ED stay and she again denies dyspnea on
reassessment. No indication for hospitalization. Patient to be transferred back to assisted living facility. Advised f/u with PCP and ED return precautions discussed.
ED Attending Note
-
Portions of this chart may have been created with voice recognition software.� Occasional wrong word or��sound alike� substitutions may have occurred due to the inherent limitations of voice recognition software.
Discharge Plan
Departure
Patient Disposition: Home (Routine Discharge)
Date of Disposition: 09/16/24
Time of Disposition: 21:59
Patient with high blood pressure during this ER visit?: No
Discharge Problem:
Shortness of breath
Instructions: Shortness of Breath (Dyspnea) (DC)
Prescriptions:
No Action
tramadol 50 mg Tablet
50 mg PO Q6HPRN PRN (Reason: moderate pain)
triamcinolone acetonide 0.1 % Cream
1 applic TOPICAL BIDPRN PRN (Reason: bilateral lower legs)
docusate sodium [Colace] 100 mg Capsule
100 mg PO DAILYPRN PRN (Reason: constipation)
gabapentin 300 mg Capsule
300 mg PO HS
diclofenac sodium 1 % Gel
2 g TOPICAL Q6HPRN PRN (Reason: knee pain)
Combivent Respimat 20-100 mcg/actuation Mist
1 puff INHALATION R Q6HPRN PRN (Reason: sob)
acetaminophen 650 mg Tablet Extended Release
650 mg PO Q4HPRN PRN (Reason: general discomfort)
furosemide 20 mg tablet
20 mg PO MOWEFR
Referrals:
Edis Rodriguez MD [Family Provider] -
Activity Restrictions/Additional Instructions:
Please follow-up with your family doctor. Return to the ER with any new or worsening symptoms.
Interventions
Interventions:
*Risk Screen - Suicide Last Done: 09/16/24 17:51
*General Assessment Last Done: 09/16/24 17:51
*Neglect/Abuse Screening Last Done: 09/16/24 17:51
ED- Fall Risk Assessment Last Done: 09/17/24 01:36
*ED COVID-19 Vaccine History Last Done: 09/17/24 01:36
*Nursing Disposition Last Done: 09/17/24 01:36
ED- Cardiac Assessment Last Done: 09/16/24 20:03
ED- Pulmonary Assessment Last Done: 09/16/24 20:03
Discharge Date and Time
Discharge Date/Time: 09/17/24 01:38
Print Language: HUNGARIAN
[2024-09-16 20:38] LABS: Troponin I < 0.012 ng/ml
== END 2024-09-17 01:38 | disposition home or self-care (01) ==
LOC: EMR 17:48
PROVIDERS: Physician Assistant; EMERGENCY PHYSICIAN Emergency Medicine; FAMILY PHYSICIAN Internal Medicine
DX: R06.02 Shortness of breath (principal); I11.0 Hypertensive heart disease with heart failure; I50.9 Heart failure, unspecified; E11.9 Type 2 diabetes mellitus without complications
CPT/HCPCS: 99285; 71046; 80053; 83880; 84484; 85025; 86850; 86900; 86901; 87502; 87807; 93005; 93971